=== PATIENT | male | born 1990 ===

== ENCOUNTER 2017-04-07 20:39 | Emergency (ER) | payer SELFPAY ==
[2017-04-08] MEDS ORDERED: NAPROXEN 250 MG TABLET PO ONE (02:38)
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
== END 2017-04-08 02:56 | disposition home or self-care (01) ==
LOC: ER 20:39
DX: S16.1XXA Strain of muscle, fascia and tendon at neck level, initial encounter (principal); S39.012A Strain of muscle, fascia and tendon of lower back, initial encounter; V89.2XXA Person injured in unspecified motor-vehicle accident, traffic, initial encounter; F17.200 Nicotine dependence, unspecified, uncomplicated
CPT/HCPCS: 99283